=== PATIENT | female | born 1990 | race Caucasian/White ===

== ENCOUNTER 2024-03-31 12:48 | Outpatient (CLI) | payer OTHER | END 2024-03-31 13:29 | disposition home or self-care (01) | LOC: NST 12:48 | PROVIDERS: ATTEND Obstetrics & Gynecology Gynecology | DX: Z34.83 Encounter for supervision of other normal pregnancy, third trimester (principal) ==

== ENCOUNTER 2024-05-22 09:09 | Outpatient (CLI) | payer OTHER | END 2024-05-22 09:40 | disposition home or self-care (01) | LOC: NST 09:09 | PROVIDERS: ATTEND Obstetrics & Gynecology Maternal & Fetal Medicine | DX: Z3A.38 38 weeks gestation of pregnancy (principal) ==

== ENCOUNTER 2024-06-01 07:52 | Inpatient (IN) | payer OTHER ==
[~2024-06-01] VITALS: Ht 160 cm; Wt 62.1 kg
[2024-06-01 07:29] VITALS: BP 99/59
[2024-06-01] MEDS ORDERED: PRENATA CHEWAB1 EACH PO (08:25)
[2024-06-01] MEDS ORDERED: SYNTHROID50 MCG PO (08:26)
[2024-06-01] MEDS ORDERED: RINGERS SOLUTION,LACTATED 1,000 ML IV SCH (08:30)
[2024-06-01 09:01] LABS: HEMATOCRIT 32.4 % (36.0-45.00); HEMOGLOBIN 11.5 g/dL (12.0-15.00); MEAN CELL VOLUME 81.7 fL (80.00-100.00); MEAN CORPUSCULAR HEMOGLOBIN 29.1 pg (27.00-32.0); MEAN CORPUSCULAR HGB CONC 35.6 g/dl (32.0-36.0); PLATELET COUNT 266 K/uL (150-450); RED BLOOD COUNT 3.97 M/uL (4.00-6.00); RED CELL DISTRIBUTION WIDTH 14.8 % (11.5-14.5)
[2024-06-01 09:22] LABS: INR < 0.93; PARTIAL THROMBOPLASTIN TIME 24.2 SECONDS (22.0-34.0); PROTHROMBIN TIME 10.2 SECONDS (9.0-11.5)
[2024-06-01 09:30] LABS: PH,URINE 7.5 (5.0-8.0); URINE APPEARANCE Clear; URINE BILIRRUBIN Negative (NEGATIVE); URINE BLOOD NHT; URINE COLOR Yellow; URINE GLUCOSE Negative (NEGATIVE); URINE KETONE Negative (NEGATIVE); URINE LEUKOCYTE Negative; URINE NITRATE Negative; URINE PROTEIN Negative (NEGATIVE); URINE UROBILINOGEN 0.2 E.U./dl
[2024-06-01 09:34] LABS: URINE BACTERIA 1161.5 uL (0.0-1933); URINE EPITHELIAL CELLS 71.9 uL (0.0-38.8); URINE RBC 5.4 uL (0.0-20.8); URINE WBC 11.8 uL (0.0-23.2)
[2024-06-01 09:38] LABS: URINE CAST 0.29 uL (0.0-1.40)
[2024-06-01 10:28] LABS: ALBUMIN 3.1 gm/dL (3.4-5.0); BILIRUBIN TOTAL 0.66 mg/dL (0.3-1.2); CALCIUM 9.2 mg/dL (8.5-10.1); CREATININE SERUM 0.54 mg/dL (0.55-1.02); GFR 129.23; GLOBULINA 3.5 G/DL (2.4-3.5); POTASSIUM 4.34 mEq/L (3.5-5.1); TOTAL PROTEIN 6.6 gm/dL (6.4-8.2)
[2024-06-01] MEDS ORDERED: CHLORHEXIDINE GLUCONATE 120 ML BOTTLE TOP ONE (10:49)
[2024-06-01] MEDS ORDERED: OXYTOCIN 20 UNITS/1000ML RL PIGGYBAG IV ONE (10:49)
[2024-06-01] MEDS ORDERED: ERYTHROMYCIN BASE OPHT 1GM EACH TUBE OP ONE (10:49)
[2024-06-01] MEDS ORDERED: LIDOCAINE HCL 1% 10ML VIAL ONE (10:49)
[2024-06-01 10:56] VITALS: BP 105/55
[2024-06-01] MEDS ORDERED: MORPHINE SULFATE 4 MG/ML VIAL IV ONE (11:15)
[2024-06-01 12:52] VITALS: BP 110/52
[2024-06-01 12:59] VITALS: BP 112/59
[2024-06-01] MEDS ORDERED: OxyCODONE HCL/APAP UD (PERCOCET) PO PRN (13:00)
[2024-06-01] MEDS ORDERED: OXYTOCIN 1,000 ML IV SCH (13:00)
[2024-06-01] MEDS ORDERED: CHLORHEXIDINE GLUCONATE 120 ML BOTTLE TP SCH (13:00)
[2024-06-01 14:56] VITALS: BP 110/73
[2024-06-01 16:14] VITALS: BP 90/60
[2024-06-01] MEDS ORDERED: KETOROLAC TROMETHAMINE 10 MG TABLET PO SCH (18:00)
[2024-06-02 00:46] VITALS: BP 100/60
[2024-06-02 08:47] VITALS: BP 98/66
== END 2024-06-02 15:40 | disposition home or self-care (01) | DRG 807 ==
LOC: OB/GYN 07:52 → LDR 07:52 → OB/GYN 13:18 → LDR 06-05 12:53
PROVIDERS: Obstetrics & Gynecology Maternal & Fetal Medicine; ADMIT Obstetrics & Gynecology Gynecology; ATTEND Obstetrics & Gynecology Gynecology
PROC: 10E0XZZ Delivery of Products of Conception, External Approach (ICD-10-PCS; principal; 2024-06-01)
PROC: 4A1HXCZ Monitoring of Products of Conception, Cardiac Rate, External Approach (ICD-10-PCS; 2024-06-01)
DX: O80 Encounter for full-term uncomplicated delivery (principal); Z37.0 Single live birth; Z3A.39 39 weeks gestation of pregnancy